=== PATIENT | female | born 1970 ===

== ENCOUNTER 2017-01-27 09:19 | Emergency (ER) | payer OTHER ==
[2017-01-27 09:28] VITALS: RESP 20; TEMP 99
--- NOTE | 2017-01-27 10:43 | C.PDOC ---
History Of Present Illness 46 yr old female presents to the ER for evaluation of fever, myalgia, nausea, vomiting and abdominal pain. Patient denies chest pain, SOB, dysuria, incontinence or back pain. SUBJ FEVER, MYALGIA, ABD PAIN, NV X 1 WEEK. LIMITED IMPROVE W OTC MED EXAM MILD DIST NONTOXIC HEENT NEG LUNGS NEG ABD NEG NO RASH REMAINDER NEG Time Seen by Provider: 01/27/17 10:25 Chief Complaint (Nursing): Abdominal Pain History Per: Patient History/Exam Limitations: no limitations Onset/Duration Of Symptoms: Days Current Symptoms Are (Timing): Still Present Sick Contacts (Context): None Recent travel outside of the [place]: No Past Medical History Reviewed: Historical Data, Nursing Documentation, Vital Signs Vital Signs: Last Vital Signs Temp 99 F 01/27/17 09:27 Pulse 107 H 01/27/17 09:27 Resp 20 01/27/17 09:27 BP 131/64 01/27/17 09:27 Pulse Ox 96 01/27/17 11:56 Family History: States: No Known Family Hx - Social History Hx Alcohol Use: No Hx Substance Use: No - Immunization History Hx Tetanus Toxoid Vaccination: Yes Hx Influenza Vaccination: Yes Hx Pneumococcal Vaccination: No Review Of Systems Except As Marked, All Systems Reviewed And Found Negative. Constitutional: Positive for: Fever (Subjective), Other ((+) Myalgia ) Cardiovascular: Negative for: Chest Pain Respiratory: Negative for: Shortness of Breath Gastrointestinal: Positive for: Nausea, Vomiting, Abdominal Pain Genitourinary: Negative for: Dysuria, Incontinence Musculoskeletal: Negative for: Back Pain Physical Exam - Physical Exam Appears: Non-toxic, In Acute Distress (Mild) Skin: Warm, Dry, No Rash Head: Atraumatic, Normacephalic Oral Mucosa: Moist Neck: Normal, Normal ROM, Supple Chest: Symmetrical, No Tenderness Cardiovascular: Rhythm Regular, No Murmur Respiratory: Normal Breath Sounds, No Rales, No Rhonchi, No Stridor, No Wheezing Gastrointestinal/Abdominal: Normal Exam, Soft, No Tenderness, No Guarding, No Rebound Extremity: Normal ROM, No Swelling Neurological/Psych: Oriented x3, Normal Speech, Normal Motor ED Course And Treatment - Laboratory Results Result Diagrams: 01/27/17 11:38 01/27/17 11:38 O2 Sat by Pulse Oximetry: 96 (RA) Pulse Ox Interpretation: Normal Reevaluation Time: 12:55 Reassessment Condition: Improved Medical Decision Making Medical Decision Making: PLAN: * CBC * BMP * Influenza * Urinalysis * Tylenol PO * Toradol IVP * Sodium Chloride IV Disposition Counseled Patient/Family Regarding: Studies Performed, Diagnosis, Need For Followup, Rx Given - Disposition Referrals: [facility] [Outside] [facility] [Outside] Disposition: HOME/ ROUTINE Disposition Time: 12:56 Condition: IMPROVED Prescriptions: Phenazopyridine HCl [Pyridium] 200 mg PO BID #6 tablet Sulfamethoxazole/Trimethoprim [Bactrim DS 800 mg-160 mg] 1 tab PO BID #14 tab Instructions: Urinary Tract Infection in Women (ED) Forms: [facility] (Polish), Work Excuse - Clinical Impression Clinical Impression: UTI (urinary tract infection) - Scribe Statement The provider has reviewed the documentation as recorded by the Romiibe Clotilde Winchester Provider Attestation: All medical record entries made by the Scribe were at my direction and personally dictated by me. I have reviewed the chart and agree that the record accurately reflects my personal performance of the history, physical exam, medical decision making, and the department course for this patient. I have also personally directed, reviewed, and agree with the discharge instructions and disposition.
[2017-01-27] MEDS ORDERED: Sodium Chloride 0.9% 1,000 ML IV ONE (10:44)
[2017-01-27 11:37] LABS: RBC URINE 30 /hpf (0-3); URINE BACTERIA RARE (<OCC); URINE BILIRUBIN NEGATIVE (NEGATIVE); URINE BLOOD 3+ (NEGATIVE); URINE COLOR Yellow (YELLOW); URINE GLUCOSE (UA) NORMAL (Normal); URINE KETONE NEGATIVE (NEGATIVE); URINE LEUKOCYTE ESTERASE TRACE Leu/uL (Negative); URINE PROTEIN 2+ mg/dL (NEGATIVE); URINE UROBILINOGEN NORMAL mg/dL (0.2-1.0)
[2017-01-27] MEDS ORDERED: Sodium Chloride 0.9% 1,000 ML ONE (11:37)
[2017-01-27 11:44] LABS: BASO # 0.1 K/uL (0.0-0.2); BASO % 0.7 % (0.0-2.0); EOS % 0.3 % (0.0-4.0); HEMATOCRIT 33.6 % (34.0-47.0); LYMPH # 1.2 K/uL (1.0-4.3); LYMPH % 15.7 % (20.0-40.0); MEAN CELL VOLUME 90.3 fL (81.0-99.0); MEAN CORPUSCULAR HEMOGLOBIN 30.9 pg (27.0-31.0); MEAN CORPUSCULAR HGB CONC 34.2 g/dL (33.0-37.0); MEAN PLATELET VOLUME 10.5 fL (7.2-11.7); MONO # 1.4 K/uL (0.0-0.8); MONO % 17.8 % (0.0-10.0); RED CELL DISTRIBUTION WIDTH 13.7 % (11.5-14.5); WHITE BLOOD COUNT 7.9 K/uL (4.8-10.8)
[2017-01-27 11:56] LABS: WBC URINE 15 /hpf (0-5)
[2017-01-27] MEDS ORDERED: cefTRIAXone IV 1 gm in Dextros 50 ML IV ONE (11:59)
[2017-01-27 12:02] LABS: CHLORIDE 97 mmol/L (98-107); POTASSIUM 4.1 mmol/L (3.6-5.2); SODIUM 136 mmol/L (132-148)
[2017-01-27 12:05] LABS: BLOOD UREA NITROGEN 10 mg/dL (7-17); CARBON DIOXIDE 25 mmol/L (22-30); GFR AFRICAN-AMERICAN > 60
[2017-01-27 12:06] LABS: CALCIUM 8.3 mg/dl (8.6-10.4); GLUCOSE,RANDOM 86 mg/dL (65-105)
[2017-01-27] MEDS ORDERED: cefTRIAXone IV 1 gm in Dextros 50 ML IVPB ONE (12:10)
[2017-01-27 13:22] VITALS: BP 110/78; PULSE 74; O2SAT 98
== END 2017-01-27 13:22 | disposition home or self-care (01) ==
LOC: C.ER 09:19
DX: N39.0 Urinary tract infection, site not specified (principal)
CPT/HCPCS: 80048; 81001; 85025; 87086; 87181; 87804; 96361; 96365; 96375; 99285; J0696; J1885; J2405; J7040